=== PATIENT | male | born 1960 | race African-American/Black ===

== ENCOUNTER 2021-06-11 12:05 | Inpatient (IN) | payer MEDICARE, MEDICAID ==
[~2021-06-11] VITALS: Ht 182.9 cm; Wt 175.0 kg
[2021-06-11 14:58] LABS: Hematocrit 34.1 % (41.0-53.0); Hemoglobin 11.3 g/dL (13.5-17.5); Mean Corpuscular Hemoglobin 28.5 pg (28.0-32.0); Mean Corpuscular Hgb Conc. 33.1 g/dL (32.0-36.0); Mean Corpuscular Volume 86.2 fL (80.0-100.0); Red Blood Cells 3.96 10^6/uL (4.5-5.90); White Blood Cell 7.3 10^3/uL (4.4-10.8)
[2021-06-11 15:02] LABS: Blast Cells 0; Eosinophils % (manual) 0 (0-7); Myelocytes % 0; Promyelocytes % 0
[2021-06-11 15:16] LABS: Albumin 2.8 g/dL (3.4-5.0); Calcium 8.8 mg/dL (8.5-10.1); Potassium 4.2 mmol/L (3.5-5.1)
[2021-06-11 15:19] LABS: BUN/Creatinine Ratio 12.4; Bilirubin, Total 0.3 mg/dL (0.2-1.0); Total Protein 7.4 g/dL (6.4-8.2)
[2021-06-11 15:29] LABS: Urine Bacteria NONE SEEN /hpf (None Seen); Urine Blood Negative /uL (Negative); Urine WBC 1 /hpf (0 - 3)
[2021-06-11] MEDS ORDERED: NITROGLYCERIN 0.4 MG SL TAB SL PRN (16:00)
[2021-06-11] MEDS ORDERED: MORPHINE SULFATE INJECTION 2 MG/ML SYRG IV PRN ×2 (16:00→18:00)
[2021-06-11 16:12] LABS: Band Neutrophils % (manual) 3; Basophils % (manual) 1 (0.0-2.0); Lymphocytes % (manual) 21 (10.0-50.0); Metamyelocytes % 1; Monocytes % (manual) 27 (0-12); Reactive Lymphocytes 5
[2021-06-11] MEDS ORDERED: IPRATROPIUM BROM 0.5 MG/2.5ML INH SOL NEB SCH (18:00)
[2021-06-11] MEDS ORDERED: hydrALAZINE HCL 20 MG/ML VL IV PRN (18:00)
[2021-06-11] MEDS ORDERED: ONDANSETRON HCL 4 MG/2 ML VIAL IV PRN (18:00)
[2021-06-11] MEDS ORDERED: HYDROcodone-ACET 5/325MG TAB PO ONE (18:00)
[2021-06-11] MEDS ORDERED: FAMOTIDINE (10MG/ML) 2ML VL IV ONE (18:00)
[2021-06-11] MEDS ORDERED: IPRATROPIUM BROM 0.5 MG/2.5ML INH SOL NEB ONE (18:00)
[2021-06-11] MEDS ORDERED: DOCUSATE SOD 100 MG CAP PO PRN (18:00)
[2021-06-11] MEDS ORDERED: HYDROcodone-ACET 5/325MG TAB PO PRN (18:00)
[2021-06-11] MEDS ORDERED: LORazepam 0.5 MG TAB PO PRN (18:00)
[2021-06-11] MEDS ORDERED: ACETAMINOPHEN 325 MG TAB PO PRN (18:00)
[2021-06-11] MEDS ORDERED: LACTULOSE 20Gm/30ML SOLN PO PRN (18:00)
[2021-06-11] MEDS ORDERED: ACYC1CAP23 PO (19:13)
[2021-06-11] MEDS ORDERED: GABA100C9 PO (19:13)
[2021-06-11] MEDS ORDERED: DEXA4TAB PO (19:13)
[2021-06-11] MEDS ORDERED: IPRATROPIUM BROM 0.5 MG/2.5ML INH SOL NEB PRN (19:30)
[2021-06-11 19:38] LABS: Magnesium 2.3 mg/dL (1.6-2.6)
[2021-06-11 20:48] LABS: INR 1.06 (0.9-1.15); Partial Thromboplastin Time 25.7 sec (23.6-33.0)
[2021-06-11 21:13] VITALS: BP 118/74
[2021-06-11 21:37] VITALS: BP 108/68
[2021-06-11] MEDS: cefTRIAXone 1GM/50ML D5W 50 ML IV SCH (21:42)
[2021-06-11] MEDS: SODIUM CHLORIDE 0.9% 1,000 ML IV SCH (21:42)
[2021-06-11] MEDS: GABAPENTIN 300 MG CAP PO SCH (21:43)
[2021-06-12 04:50] VITALS: BP 115/72
[2021-06-12] MEDS: GABAPENTIN 300 MG CAP PO SCH ×3 (05:35→21:22)
[2021-06-12 06:03] LABS: Hematocrit 31.6 % (41.0-53.0); Hemoglobin 10.6 g/dL (13.5-17.5); Mean Corpuscular Hemoglobin 28.5 pg (28.0-32.0); Mean Corpuscular Hgb Conc. 33.6 g/dL (32.0-36.0); Mean Corpuscular Volume 84.8 fL (80.0-100.0); Red Blood Cells 3.73 10^6/uL (4.5-5.90); Red Cell Distribution Width 18.5 % (11.8-14.3)
[2021-06-12 06:16] LABS: Magnesium 2.2 mg/dL (1.6-2.6)
[2021-06-12 06:20] LABS: INR 1.1 (0.9-1.15); Partial Thromboplastin Time 27.2 sec (23.6-33.0)
[2021-06-12 06:27] LABS: Albumin 2.5 g/dL (3.4-5.0); BUN/Creatinine Ratio 11.5; Bilirubin, Total 0.3 mg/dL (0.2-1.0); CRP High Sensitivity 3.99 mg/dL (< 0.3); Calcium 8.6 mg/dL (8.5-10.1); Phosphorus 3.5 mg/dL (2.5-4.90); Total Protein 7.1 g/dL (6.4-8.2); Uric Acid 9.9 mg/dL (3.5-7.2)
[2021-06-12 07:02] LABS: Basophils % (manual) 0 (0.0-2.0); Blast Cells 0; Metamyelocytes % 0; Myelocytes % 0; Promyelocytes % 0; Reactive Lymphocytes 0
[2021-06-12] MEDS: FAMOTIDINE (10MG/ML) 2ML VL IV SCH (08:21)
[2021-06-12] MEDS: cefTRIAXone 1GM/50ML D5W 50 ML IV SCH (08:21)
[2021-06-12] MEDS: ACYCLOVIR 400 MG TAB PO SCH (08:22)
[2021-06-12] MEDS: ENOXAPARIN SOD 40 MG/0.4 ML SYRINGE SC SCH (08:23)
[2021-06-12 08:29] LABS: Band Neutrophils % (manual) 4; Eosinophils % (manual) 1 (0-7); Lymphocytes % (manual) 20 (10.0-50.0); Monocytes % (manual) 19 (0-12)
[2021-06-12 09:00] VITALS: BP 103/74
[2021-06-12] MEDS ORDERED: CHOLECALCIFEROL (VITD3) 2,000 UNIT CAP/TAB PO SCH (10:00)
[2021-06-12] MEDS: SODIUM CHLORIDE 0.9% 1,000 ML IV SCH ×2 (10:52→23:25)
[2021-06-12] MEDS ORDERED: ceFAZolin 1GM/50ML 50 ML IV ONE ×2 (11:30→16:10)
[2021-06-12] MEDS ORDERED: LIDOCAINE VISCOUS 2% 15ML UD ONE (12:35)
[2021-06-12] MEDS ORDERED: MIDAZOLAM HCL 5 MG/ML-1ML VIAL ONE (12:35)
[2021-06-12] MEDS ORDERED: diphenhdrAMINE HCL 50 MG/1 ML VL ONE (12:35)
[2021-06-12] MEDS ORDERED: fentaNYL CITRATE 100 MCG/2 ML VL ONE (12:35)
[2021-06-12] MEDS ORDERED: SODIUM CHLORIDE LOCK 10 ML ONE (12:35)
[2021-06-12 12:41] VITALS: BP 106/78
[2021-06-12 16:32] VITALS: BP 112/66
[2021-06-12] MEDS ORDERED: guaiFENesin 200 MG/10 ML UD PO PRN (20:00)
[2021-06-12] MEDS: CLINDAMYCIN 600MG IV 50 ML IV SCH (21:21)
[2021-06-12 22:00] VITALS: BP 99/69
[2021-06-13 04:36] VITALS: BP 92/56
[2021-06-13] MEDS: CLINDAMYCIN 600MG IV 50 ML IV SCH (05:59)
[2021-06-13] MEDS: GABAPENTIN 300 MG CAP PO SCH (05:59)
[2021-06-13 09:00] VITALS: BP 116/70
[2021-06-13] MEDS: FAMOTIDINE (10MG/ML) 2ML VL IV SCH (09:48)
[2021-06-13] MEDS: ENOXAPARIN SOD 40 MG/0.4 ML SYRINGE SC SCH (09:49)
[2021-06-13] MEDS: ACYCLOVIR 400 MG TAB PO SCH (09:49)
[2021-06-13] MEDS ORDERED: PANT40TA2 PO (11:21)
[2021-06-13] MEDS ORDERED: CEPH-322 PO (11:21)
== END 2021-06-13 13:00 | disposition home or self-care (01) | DRG 393 ==
LOC: ER 12:05 → OVERFLOW 15:50 → CENTRAL 17:53
PROVIDERS: ADMIT Hospitalist; ATTEND Internal Medicine
PROC: 0D20XUZ Change Feeding Device in Upper Intestinal Tract, External Approach (ICD-10-PCS; principal; 2021-06-12 16:15)
DX: K94.23 Gastrostomy malfunction (principal); E43 Unspecified severe protein-calorie malnutrition; L03.90 Cellulitis, unspecified; R64 Cachexia; Z68.43 Body mass index [BMI] 50.0-59.9, adult; N18.9 Chronic kidney disease, unspecified; R13.10 Dysphagia, unspecified; K94.21 Gastrostomy hemorrhage; K44.9 Diaphragmatic hernia without obstruction or gangrene; K29.70 Gastritis, unspecified, without bleeding; Z20.822 Contact with and (suspected) exposure to COVID-19; D63.8 Anemia in other chronic diseases classified elsewhere; Y83.8 Other surgical procedures as the cause of abnormal reaction of the patient, or of later complication, without mention of misadventure at the time of the procedure; Y92.89 Other specified places as the place of occurrence of the external cause; Z99.2 Dependence on renal dialysis; Z79.899 Other long term (current) drug therapy; Z85.79 Personal history of other malignant neoplasms of lymphoid, hematopoietic and related tissues
CPT/HCPCS: 36415; 43235; 43239; 43762; 71045; 72100; 72220; 74176; 80053; 80061; 81001; 82728; 83036; 83615; 83690; 83735; 83880; 84100; 84443; 84484; 84550; 85007; 85027; 85379; 85610; 85652; 85730; 86141; 86850; 86870; 86880; 86900; 86901; 86906; 86970; 87040; 87086; 93005; 96361; 96374; G0378; J0690; J0696; J2250; J3490